=== PATIENT | male | born 1985 | race Hispanic/Latino ===

== ENCOUNTER → 2018-11-21 | Outpatient (CLI) | payer OTHER ==
--- NOTE | 2018-11-21 15:14 | REP ---
PA and lateral chest: There are no comparisons. The lung root are clear. The cardiac size is normal. The benny, mediastinum, and skeletal structures are unremarkable. Impression: Negative PA and lateral chest. Electronically Signed by Maikel Aleman MD 11/21/2018 03:05 P
== END ==
LOC: M RAD 09:01
PROVIDERS: ATTEND Surgery
DX: R07.9 Chest pain, unspecified (principal)

== ENCOUNTER → 2019-03-21 | Outpatient (CLI) | payer OTHER ==
--- NOTE | 2019-03-22 01:20 | REP ---
Clinical: Left-sided neck pain . Technique: AP, lateral, flexion/extension, bilateral oblique, and open-mouth views. Findings: Alignment and lordosis is maintained. There is no evidence for acute fracture / compression injury or subluxation. No significant degenerative changes are appreciated. Oblique views demonstrate patent neural foramen. Open mouth view demonstrates normal C1-C2 articulation and odontoid process. Impression: Essentially normal age-appropriate cervical spine series. Electronically Signed by Awais Jernigan MD 03/22/2019 01:12 A
== END ==
LOC: M RAD 08:43
PROVIDERS: ATTEND Surgery
DX: M54.2 Cervicalgia (principal)